=== PATIENT | male | born 1965 | race Caucasian/White ===

== ENCOUNTER 2017-07-21 12:50 | Outpatient (CLI) | payer OTHER ==
[~2017-07-21] VITALS: Ht 175.3 cm; Wt 83.9 kg
[2017-07-21 13:02] VITALS: BP 135/96
[2017-07-21 13:35] VITALS: BP 124/92
--- NOTE | 2017-07-25 21:48 | OPERATIVE REPORT ---
DATE OF SERVICE: 07/21/2017 DIAGNOSIS: Epidural leak. PROCEDURE: We roshni up 20 mL of the patient's autologous blood and that was introduced into there under fluoroscopy. SURGEON: Juliette Ruiz DO. PROCEDURE IN DETAIL: After obtaining informed consent from the patient, the patient's chart was reviewed. The patient was then brought to the procedure room and placed in the prone position. A timeout was performed. The back was prepped with antiseptic solution and under fluoro guidance, the patient's lumbar spine was identified at the level of L5-S1. The L5-S1 vertebra was identified with fluoro guidance and approximately 2 mL of 1.5% lidocaine solution was used to anesthetize the skin directly down to the pedicle of the L5-S1 and under fluoroscopic guidance, the tract was anesthetized up to the interlaminar space and the ligamentum flavum. This needle was withdrawn. Then, a 20-gauge 3.5 inch Tuohy needle was then directed following the same tract that was anesthetized with the spinal needle. Using loss of resistance, the epidural space was identified and then the syringe was switched for contrast solution which was injected, approximately 1 mL. After secondary confirmation of epidural access, we roshni up 20 mL of the patient's autologous blood and that was introduced into there under fluoroscopy. The Tuohy needle was then flushed out with approximately 2 mL of the normal saline used from the [id number] syringe. Afterwards, the patient reported resolution of pain symptoms. Band-Aids were applied to all the procedure sites. The patient tolerated the procedure well and was taken to the recovery room in stable condition. COMPLICATIONS: None. Job ID: [id number] DocumentID: [id number] Dictated Date: 07/25/2017 09:42:16 [employer] Date: 07/25/2017 17:03:54 Dictated By: JULIETTE RUIZ DO
== END 2017-07-21 13:40 | disposition home or self-care (01) ==
LOC: CARD 12:50
PROVIDERS: ATTEND Pain Medicine Interventional Pain Medicine
DX: G97.0 Cerebrospinal fluid leak from spinal puncture (principal)
CPT/HCPCS: 62273

== ENCOUNTER → 2017-08-31 | Outpatient (CLI) | payer OTHER ==
--- NOTE | 2017-08-31 10:30 | Diagnostic Imaging Report ---
PROCEDURE: MRI lumbar spine. TECHNIQUE: A multiplanar/multisequence MRI of the lumbar spine was performed without contrast. INDICATION: Recent increase in low back pain. Remote fusion. FINDINGS: Anterior and interbody fusion at the L5-S1 levels has been performed. The few segments appear aligned anatomically. No suspicious marrow signal abnormality or appreciable endplate destruction. No paravertebral mass or fluid collection. The spinal canal, neural foramen, spinal canal, and lateral recesses at the levels of fusion are well maintained. Some residual or recurrent eccentric bulging of the disc to the left accompanied by endplate osteophytes mildly stenose the left neural foramen. The L4-L5 disc reveals features of midline posterior annular tearing accompanied by broad-based bulging posteriorly indenting the ventral thecal sac with a mild degree of canal stenosis and mild bi-foraminal narrowing. The remaining levels and discs appear normal. The conus is normal. There is no intrathecal abnormality. No paravertebral mass, hemorrhage, or fluid collection. IMPRESSION: 1. L5-S1 anterior and interbody fusion with anatomic alignment. Mild left L5-S1 and mild bi-foraminal stenosis at L4-L5. Also at L4-L5, midline broad-based bulging accompanied by annular tearing of the disc margin results in mild canal stenosis. 2. No acute bony pathology. The remaining levels are normal. No acute intrathecal or epidural abnormality. Dictated by: Dictated on workstation # [id number]
== END ==
LOC: RAD 08:42
DX: M48.061 Spinal stenosis, lumbar region without neurogenic claudication (principal); M99.73 Connective tissue and disc stenosis of intervertebral foramina of lumbar region; M62.18 Other rupture of muscle (nontraumatic), other site; M51.27 Other intervertebral disc displacement, lumbosacral region; Z98.1 Arthrodesis status
CPT/HCPCS: 72148